=== PATIENT | male | born 1980 | race Caucasian/White ===

== ENCOUNTER 2016-12-25 23:15 | Emergency (ER) | payer OTHER ==
[2016-12-26 00:28] LABS: BASOPHIL 0.2 % (0-2); EOSINOPHIL 0.4 % (0-5); HGB 15.7 g/dl (13.2-18.0); LYMPHOCYTE 15.1 % (15-48); MCH 27.4 pg (25.0-31.0); MCHC 34.1 g/dL (32.0-36.0); MCV 80.1 fL (78.0-100.0); MONOCYTE 5.7 % (0-12); MPV 10.3 fL (6.0-9.5); NEUTROPHIL 78.6 % (41-80); PLT 354 K/uL (150-400); RBC 5.74 M/uL (4.70-6.00); RDW 14.5 % (11.5-14.0); WBC 9.9 K/uL (4.0-10.5)
[2016-12-26 01:00] LABS: ALBUMIN 4.2 g/dL (3.5-5.0); BILIRUBIN - TOTAL 0.4 mg/dL (0.1-1.0); CREATININE 0.8 mg/dL (0.7-1.2); TOTAL PROTEIN 7.2 g/dL (6.4-8.3)
== END 2016-12-26 01:46 ==
LOC: FER 23:15
PROVIDERS: Emergency Medicine
DX: S06.0X9A Concussion with loss of consciousness of unspecified duration, initial encounter (principal); S01.112A Laceration without foreign body of left eyelid and periocular area, initial encounter; M54.2 Cervicalgia; M25.511 Pain in right shoulder; F17.200 Nicotine dependence, unspecified, uncomplicated; Y04.2XXA Assault by strike against or bumped into by another person, initial encounter; Y92.149 Unspecified place in prison as the place of occurrence of the external cause
CPT/HCPCS: 36415; 70450; 70486; 71020; 72125; 72128; 72131; 73030; 80053; 85025; J2270